=== PATIENT | female | born 1995 | race Caucasian/White ===

== ENCOUNTER 2020-01-20 15:09 | Emergency (ER) | payer OTHER, SELFPAY ==
[2020-01-20 15:09] VITALS: BP 143/80; PULSE 82; RESP 16; TEMP 36.8; O2SAT 95
--- NOTE | 2020-01-20 15:29 | ED.SKABFB ---
HPI - Skin/Abscess/Foreign Bdy General Chief complaint: Allergic Reaction Stated complaint: face swelling Time Seen by Provider: 01/20/20 15:29 Source: patient Mode of arrival: ambulatory Limitations: no limitations History of Present Illness HPI narrative: 24-year-old woman comes in today complaining of periocular swelling, itching and a rash on her arms and legs that has been present for the last week or so. Patient states that it started after she did some yd work and was burning poison tanya. She states that she has been on a steroid taper ( prednisone 40 mg - 10 mg over 8 days) but her symptoms are not improving. She states that she has had similar reactions in the past but not this bad. She denies throat swelling, tongue swelling, wheezing, shortness breath, nausea, vomiting. MD complaint: rash Onset (ago): week(s) (1) Location: face, neck, LUE, RUE, LLE and RLE Severity: moderate Quality: pruritic Pain Consistency: constant Relieving factors: none Exacerbating factors: none Associated symptoms: denies other symptoms Treatments prior to arrival: OTC topical medication and corticosteroid Related Data Home Medications Medication Instructions Recorded Confirmed metformin 100 mg PO BID 01/20/20 01/20/20 sertraline 100 mg PO DAILY 01/20/20 01/20/20 Allergies Allergy/AdvReac Type Severity Reaction Status Date / Time Sulfa (Sulfonamide Allergy Mild RASH,ITCHIN Verified 05/04/12 14:44 Antibiotics) G Review of Systems Constitutional: Constitutional: Denies chills and Denies fever(s) Eyes: Eyes: Denies change in vision and Denies photophobia ENT: Denies dysphagia, Denies nasal congestion and Denies sore throat Cardiovascular: Cardiovascular: Denies chest pain and Denies radiating jaw, neck or arm pain Respiratory: Respiratory: Denies chest congestion, Denies cough, Denies dyspnea and Denies wheezing Gastrointestinal: Gastrointestinal: Denies abdominal pain, Denies diarrhea, Denies nausea and Denies vomiting Musculoskeletal: Musculoskeletal: Denies back pain, Denies arthralgias and Denies joint swelling Integumentary/Breasts: Skin/Breast: Reports as per HPI Neurologic: Denies vertigo, Denies dizziness and Denies syncope Hematologic/Lymphatic: Hematologic/Lymphatic: Denies easy bleeding and Denies easy bruising Allergic/Immunologic: Allergic/Immunologic: Denies lip swelling and Denies wheezing PMFSH Past Medical History Medical History Type 2 diabetes mellitus Surgical History Surgical History H/O hernia repair Social History Social History Smoking status: Never smoker Alcohol intake: never Substance use: never Living arrangements: with family Exam Const: General: healthy appearing and alert Nutritional Appearance: well nourished Orientation/consciousness: patient oriented x3 Other: mild acute distress HENMT: Ears: external ears normal General nose exam: Normal nares present Mouth: Yes Normal oral and palatal mucosa present and Yes moist mucous membranes Throat: posterior oropharynx normal and uvula midline Other: [id number] periocular swelling with mild erythema. Eyes: Conjunctivae: conjunctivae normal Pupils: Equal, round and reactive pupils present EOM: EOMs intact bilaterally Neck: Neck: normal visual inspection and no lymphadenopathy Resp: Effort & Inspection: normal respiratory effort and not labored Auscultation: no rales, no rhonchi and no wheezes Cardio: Rate: regular rate Rhythm: regular rhythm GI: Inspection: non-distended Auscultation: normal bowel sounds Skin: General skin exam: normal color Other: Papulovesicular patchy rash on the arms and legs, mostly the anterior surfaces. Neuro: General: patient oriented x3, moves all extremities, no focal motor deficits and CN's II-XI inta
[2020-01-20] MEDS: methylPREDNISolone ACETATE 40 MG/ML VIAL 80 MG IM (15:55)
[2020-01-20 15:59] VITALS: PULSE 80; RESP 14; O2SAT 96
== END 2020-01-20 16:17 | disposition home or self-care (01) ==
PROVIDERS: Emergency Provider Emergency Medicine; PCP Family Medicine
DX: L23.7 Allergic contact dermatitis due to plants, except food (principal)
CPT/HCPCS: 96372; 99283; J1030